=== PATIENT | female | born 1975 | race American Indian/Alaskan Native ===

== ENCOUNTER 2024-11-29 16:45 | Emergency (ER) | payer OTHER ==
[~2024-11-29] VITALS: Ht 165.1 cm; Wt 110.7 kg
[~2024-11-29 16:45] MED LIST: FLUOXETINE HCL20 MG PO; NORCO 5-325 TA1 EACH PO; PRILOSEC20 MG PO; SIMVASTATIN20 MG PO
[2024-11-29] MEDS ORDERED: ROSUVASTATIN CA10 MG PO (17:11)
[2024-11-29] MEDS ORDERED: PANTOPRAZOLE SO40 MG PO (17:11)
[2024-11-29] MEDS ORDERED: METOPROLOL SUCC50 MG PO (17:11)
[2024-11-29] MEDS ORDERED: ACETAMINOPHEN 500 MG TAB PO ONE (17:15)
[2024-11-29] MEDS ORDERED: IBUPROFEN 400 MG TAB PO ONE (17:15)
[2024-11-29 17:25] LABS: BASOPHILS 0.5 % (0-2); HEMATOCRIT 38.7 % (35.0-50.0); HEMOGLOBIN 13.3 g/dL (12.0-18.0); MCHC 34.4 g/dl (30-36); MCV 90.1 fl (81-99); MONOCYTES 4.7 % (0-12); NEUTROPHILS 59.8 % (39-80); PLATELET COUNT 296 K/uL (140-440); RBC 4.29 M/ul (4.3-5.7); RDW 13.7 (10.5-15.0)
[2024-11-29 17:49] LABS: ANION GAP 12.7 (7-21); BUN/CREATININE RATIO 10.66 (6.0-28.6); CALCIUM 9.1 mg/dL (8.5-10.1); CREATININE, SERUM 0.75 mg/dL (0.55-1.02); MAGNESIUM 1.9 mg/dL (1.8-2.4); POTASSIUM 3.7 mmol/L (3.5-5.1); TSH, 3RD GENERATION 1.631 uIU/mL (0.358-3.740)
[2024-11-29 18:25] VITALS: BP 126/83
--- NOTE | 2024-12-02 10:14 | EKG ---
[facility] [address] [facility] [place], [place] [address] Signed Sinus rhythm with frequent premature ventricular complexes in a pattern of bigeminy Otherwise normal ECG No previous ECGs available Confirmed by Raymon Cabrera DO ([id number]) on 12/02/2024 10:14:29 AM Electronically Signed By: RAYMON CABRERA DO 12/02/24 1014 PATIENT NAME: ALETA WILLSON LILIANA Electrocardiogram DATE OF : 73 PHYSICIAN: RAYMON CABRERA DO REPORT #: [id number] REPORT IS CONFIDENTIAL AND NOT TO BE RELEASED WITHOUT AUTHORIZATION
== END 2024-11-29 18:25 | disposition home or self-care (01) ==
LOC: ED 16:45
PROVIDERS: Emergency Medicine
DX: I49.3 Ventricular premature depolarization (principal); R51.9 Headache, unspecified; Z79.899 Other long term (current) drug therapy
CPT/HCPCS: 36415; 80048; 83735; 84443; 85025; 93005; 93010; 99285; A9270

== ENCOUNTER 2025-01-27 06:05 | Day surgery (SDC) | payer OTHER ==
[2025-01-23 10:20] VITALS: BP 107/79
[~2025-01-27] VITALS: Ht 165.1 cm; Wt 110.1 kg
[~2025-01-27 06:05] MED LIST changes: +IRON325 M1 PO; +METOPROLOL SUCC50 MG PO; +MIDAZOLAM HCL 5 MG/5 ML VIAL IV PRN; +PANTOPRAZOLE SO40 MG PO; +ROSUVASTATIN CA10 MG PO; +WEGOVY0.5 MG/0.5; +fentaNYL citrate 100 MCG/2 ML VIAL IV PRN
[2025-01-27 06:13] VITALS: BP 119/62
[2025-01-27] MEDS ORDERED: LACTATED RINGER'S 1,000 ML IV SCH (07:00)
[2025-01-27] MEDS ORDERED: IBLOOD GLUCOSE TEST STRIP 1 EA TEST VI PRN (07:00)
[2025-01-27] MEDS ORDERED: LIDOCAINE HCL 1% 5 ML SDV INJ ONE (07:00)
[2025-01-27] MEDS ORDERED: LIDOCAINE HCL 2% 5 ML SDV ONE (07:10)
[2025-01-27] MEDS ORDERED: propofoL 200 MG/20 ML VIAL ONE (07:10)
[2025-01-27] MEDS ORDERED: fentaNYL citrate 100 MCG/2 ML VIAL ONE (07:45)
--- NOTE | 2025-01-27 08:05 | NUR ---
01/27/25 0805 Sheets,Sydnee 0800 PT ARRIVED TO PACU ON RA AND AWAKE TALKING TO RN. VSS. PT DENIES CONCERNS, PT ENCOURAGED TO PASS GAS NEEDED.
[2025-01-27 08:23] VITALS: BP 119/66
--- NOTE | 2025-01-28 08:25 | OR ---
[facility] [address] [place], [place] [address] Signed DATE OF OPERATION: 01/27/2025 SURGEON: Dayanna Lewis MD PREOPERATIVE DIAGNOSES: 1. Screening. 2. History of pruritus ani, now resolved. POSTOPERATIVE DIAGNOSIS: Tortuous sigmoid colon. PROCEDURE: Colonoscopy without biopsy. ESTIMATED BLOOD LOSS: None. INDICATIONS: Nathalie is a 49-year-old female, asked to see me for her initial screening colonoscopy. She has no lower GI complaints. There is no family history of colon cancer or polyps. She describes pruritus ani in the past. It is now resolved. She also had upper and lower endoscopy with Dr. Sanchez back in 2006. She said that all went well. I believe she had iron deficiency anemia at that time. She also mentioned of premature ventricular contractions associated with stress. She has even been in the ER a few times. She initially told me she had not seen a entry level recruiter, but today she told me she had been to see Dr. Adonis Diaz in the remote past. She describes a stress test and apparently was put on metoprolol, nothing else was needed. She said that usually works out very well. In the office I had given her a pamphlet on colonoscopy. We had reviewed the nature of the test. There is risk including, but not limited to gas bloating, crampy abdominal pain, bleeding, perforation requiring surgery, and missed diagnosis. We also reviewed the need for monitored anesthesia care given her body habitus along with her history of PVCs, especially under stress. She had expressed understanding and wished to proceed. We looked at her preoperative EKG and one had PVCs and one did not. She understands an adult person has to take her home afterwards. DESCRIPTION OF PROCEDURE: Nathalie was taken into our endoscopy suite and placed in the left lateral decubitus position. She was given monitored anesthesia care propofol infusion per our nurse field installation technician. A digital rectal exam was performed and this was unremarkable. She had good sphincter tone. No external hemorrhoids. There were no masses. The adult Electronically Signed By: DAYANNA LEWIS MD 01/28/25 0825 PATIENT NAME: NATHALIE WILLSON OPERATIVE REPORT DATE OF : 73 REPORT #: [id number] PHYSICIAN: DAYANNA LEWIS MD PCP: TOMMIE BOWERS MD REPORT IS CONFIDENTIAL AND NOT TO BE RELEASED WITHOUT AUTHORIZATION [facility] [address] [place], [place] [address] Signed colonoscope was introduced and advanced all the way around into the cecum under direct visualization of the camera. It took extra propofol and abdominal compression to get through her tortuous sigmoid colon and somewhat in the left colon as well. Of course, she had bradycardia during those episodes and we had to pause frequently and give her heart a chance to recover. She did have a few PVCs. We eventually made it into the cecum itself. Her prep was quite good. We could easily see the appendiceal orifice and ileocecal valve. The scope was then slowly withdrawn. We did not see any pathology throughout the entire colon or rectum. Upon retroflexion of scope, there was no pathology above the anal canal. After this, the gas was suctioned out, colonoscope removed. Nathalie tolerated the procedure quite well. RECOMMENDATIONS: Nathalie can follow up in 10 years for repeat screening colonoscopy. 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 Dayanna Lewis MD ALB/MODL /[id number] cc: MD Dayanna Torres MD Russell Barr Harrison, MD Copies: DANIELLE DIAZ MD, ANDREW L MD HARRISON, RUSSELL BARR MD ~ Electronically Signed By: DAYANNA LEWIS MD 01/28/25 0825 PATIENT NAME: NATHALIE WILLSON OPERATIVE REPORT DATE OF : 73 REPORT #: [id number] PHYSICIAN: DAYANNA LEWIS MD PCP: TOMMIE BOWERS MD REPORT IS CONFIDENTIAL AND NOT TO BE RELEASED WITHOUT AUTHORIZATION
== END 2025-01-27 08:32 | disposition home or self-care (01) ==
LOC: DS 06:05
PROVIDERS: ATTEND Colon & Rectal Surgery
PROC: 0DJD8ZZ Inspection of Lower Intestinal Tract, Via Natural or Artificial Opening Endoscopic (ICD-10-PCS; principal; 2025-01-27 07:30)
DX: Z12.11 Encounter for screening for malignant neoplasm of colon (principal); K63.89 Other specified diseases of intestine; K21.9 Gastro-esophageal reflux disease without esophagitis; E78.5 Hyperlipidemia, unspecified; F32.A Depression, unspecified; E66.9 Obesity, unspecified; Z68.41 Body mass index [BMI] 40.0-44.9, adult; Z79.899 Other long term (current) drug therapy; Z90.49 Acquired absence of other specified parts of digestive tract
CPT/HCPCS: 00812; 36415; 84703; J2003; J2704; J3010; J7121